=== PATIENT | female | born 1995 | race Asian ===

== ENCOUNTER 2018-01-07 02:44 | Emergency (ER) | payer OTHER ==
[2018-01-07 03:10] LABS: BILIRUBIN,URINE NEGATIVE (NEGATIVE); GLUCOSE, URINE (UA) 500 mg/dL (NEGATIVE); KETONES,URINE (UA) TRACE mg/dL (NEGATIVE); LEUKOCYTE ESTERASE, URINE NEGATIVE (NEGATIVE); NITRITE,URINE NEGATIVE (NEGATIVE); OCCULT BLOOD,URINE TRACE-LYSE (NEGATIVE); PROTEIN,URINE NEGATIVE (NEGATIVE); UROBILINOGEN,URINE 1 (NORMAL) E.U./dL (NORMAL)
[2018-01-07] MEDS ORDERED: DICYCLOMINE 10 MG CAPSULE PO STA (03:10)
[2018-01-07] MEDS ORDERED: ONDANSETRON ODT 4 MG TABLET TL STA (03:10)
[2018-01-07] MEDS ORDERED: ACETAMINOPHEN 500 MG TABLET PO STA (03:10)
[2018-01-07] MEDS ORDERED: MAG HYDROX/AL HYDROX/SIMETH 30 ML UDC PO STA (03:11)
[2018-01-07] MEDS ORDERED: LIDOCAINE VISCOUS 2% 15 ML UDC MM STA (03:11)
[2018-01-07] MEDS ORDERED: FAMOTIDINE 20 MG TABLET PO STA (03:11)
[2018-01-07 03:12] LABS: CLARITY,URINE CLEAR (CLEAR); HCG UR QUAL NEGATIVE
[2018-01-07 03:24] LABS: BASOPHILS # (AUTO) 0.1 10^3/uL (0.0-0.1); BASOPHILS % (AUTO) 0.9 %; EOSINOPHILS # (AUTO) 0.9 10^3/uL (0.0-0.7); EOSINOPHILS % (AUTO) 6.5 %; HGB - HEMOGLOBIN 13.4 g/dL (12.0-16.0); LYMPHOCYTES # (AUTO) 2.9 10^3/uL (1.5-3.5); LYMPHOCYTES % (AUTO) 21.1 %; MEAN CORPUSCULAR HEMOGLOBIN 29.3 pg (27.0-31.0); MEAN CORPUSCULAR HGB CONC 32.6 g/dL (32.0-36.0); MEAN PLATELET VOLUME 8.8 fL (7.9-10.8); MONOCYTES % (AUTO) 7.7 %; NEUTROPHILS # (AUTO) 8.6 10^3/uL (1.5-6.6); NEUTROPHILS % (AUTO) 63.8 %; PLT - PLATELET COUNT 310 10^3/uL (130-450); RED BLOOD COUNT 4.56 10^6/uL (4.20-5.40); RED CELL DISTRIBUTION WIDTH 12.6 % (12.0-15.0); WHITE BLOOD COUNT 13.5 x10^3/uL (4.8-10.8)
[2018-01-07 03:37] LABS: ALBUMIN 3.7 g/dL (3.2-5.5); ALBUMIN/GLOBULIN RATIO 0.9 (1.0-2.2); BILIRUBIN,TOTAL 0.7 mg/dL (0.2-1.0); CALCIUM 8.9 mg/dL (8.5-10.3); CREATININE 0.5 mg/dL (0.4-1.0); TOTAL PROTEIN 7.6 g/dL (6.7-8.2)
--- NOTE | 2018-01-07 03:50 | ED Physician Documentation ---
PD HPI ABD PAIN - Stated complaint Stated Complaint: ABDOMINAL PAIN - Chief complaint Chief Complaint: Abd Pain - History obtained from History obtained from: Patient, Family - History of Present Illness Timing - onset: Today Timing - details: Gradual onset, Still present Quality: Cramping, Aching, Sharp Location: All over / everywhere, RUQ, Epigastric Worsened by: Eating Associated symptoms: Nausea, Diarrhea. No: Fever, Vomiting Similar symptoms before: No diagnosis Recently seen: Not recently seen - Additional information Additional information: Patient is a 22 year old obese female who is presenting to the emergency department for abdominal pain. Patient states that the pain started this evening. patient had chicken nuggets for lunch and then urugu[place] food for dinner. patient states that she is nauseated but did not vomit. Patient has had a few episode like this in the past but has never been diagnosed with anything. patient reports that her pain in mainly on the right side and the center. Review of Systems Constitutional: denies: Fever, Chills Eyes: reports: Reviewed and negative Ears: reports: Reviewed and negative Nose: reports: Reviewed and negative Throat: reports: Reviewed and negative Cardiac: denies: Chest pain / pressure, Palpitations GI: reports: Abdominal Pain, Nausea, Diarrhea. denies: Vomiting, Constipation : denies: Dysuria, Frequency, Hesitancy Skin: denies: Rash, Lesions Neurologic: denies: Generalized weakness, Focal weakness, Numbness Immunocompromised: denies: Immunocompromised PD PAST MEDICAL HISTORY - Past Medical History Past Medical History: No - Past Surgical History Past Surgical History: No - Present Medications Home Medications: Ambulatory Orders Medication Instructions Recorded Confirmed Ondansetron Odt [Zofran] 4 mg TL Q6H PRN #14 tablet 01/07/18 - Allergies Allergies/Adverse Reactions: Allergies Allergy/AdvReac Type Severity Reaction Status Date / Time amoxicillin Allergy Respiratory Verified 01/07/18 02:59 - Social History Does the pt smoke?: No Smoking Status: Never smoker Does the pt drink ETOH?: No Does the pt have substance abuse?: No - Immunizations Immunizations are current?: Yes - POLST Patient has POLST: No PD ED PE NORMAL - Vitals Vital signs reviewed: Yes - General General: Alert and oriented X 3 - HEENT HEENT: Atraumatic - Neck Neck: Supple, no meningeal sign - Cardiac Cardiac: RRR - Respiratory Respiratory: No respiratory distress - Abdomen Abdomen: Soft - Derm Derm: Normal color, Warm and dry - Extremities Extremities: No deformity - Neuro Neuro: Alert and oriented X 3, No motor deficit Eye Opening: Spontaneous PD ED PE EXPANDED - General General: Alert, In Pain - Abdomen Abdomen: Tender to palpation, RUQ, Epigastric, Generalized/diffuse. No: Rebound , Guarding - Derm Derm: Rash (consistent with acanthosis nigrans) Results - Vitals Vitals: Vital Signs - 24 hr 01/07/18 01/07/18 01/07/18 02:50 04:09 05:50 Temperature 36.0 C L Heart Rate 96 64 75 Respiratory 18 16 18 Rate Blood Pressure 149/104 H 117/75 142/104 H O2 Saturation 98 96 99 Oxygen O2 Source Room air - Labs Labs: Laboratory Tests 01/07/18 01/07/18 01/07/18 02:50 03:15 03:15 WBC 13.5 H RBC 4.56 Hgb 13.4 Hct 41.0 MCV 90.0 MCH 29.3 MCHC 32.6 RDW 12.6 Plt Count 310 MPV 8.8 Neut # 8.6 H Lymph # 2.9 [place] # 1.0 Eos # 0.9 H Baso # 0.1 Absolute Nucleated RBC 0.01 Nucleated RBC % 0.0 Sodium 134 L Potassium 3.9 Chloride 103 Carbon Dioxide 24 Anion Gap 7.0 BUN 11 Creatinine 0.5 Estimated GFR (MDRD) 156 Glucose 289 H Calcium 8.9 Total Bilirubin 0.7 AST 23 ALT 37 Alkaline Phosphatase 114 Total Protein 7.6 Albumin 3.7 Globulin 3.9 Albumin/Globulin Ratio 0.9 L Lipase 35 Urine Color YELLOW Urine Clarity CLEAR Urine pH 6.0 Ur Specific [place] >=1.030 H Urine Protein NEGATIVE Urine Glucose (UA) 500 H Urine Ketones TRACE Urine Occult Blood TRACE-LYSE Urine Nitrite NEGATIVE Urine Bilirubin NEGATIVE Urine Urobilinogen 1 (NORMAL) Ur Leukocyte Esterase NEGATIVE Ur Microscopic Review NOT INDICATED Urine Culture Comments NOT INDICATED Urine HCG, Qual NEGATIVE - Rads (name of study) abd ultrasound Radiology: Final report received (fatty liver, no signs of cholecystitis) PD MEDICAL DECISION MAKING - ED course Complexity details: reviewed old records, reviewed results, re-evaluated patient , considered differential, d/w patient, d/w family ED course: patient was seen and examined at bedside. labs were drawn and urine was collected. Patient was treated with tylenol, bentyl, zofran, pepcid, maalox and viscous lidocaine. Ultrasound was ordered. When patient returned from imaging the results were reviewed. there were no signs of acute cholecystitis. A lengthy discussion was had with the patient and her about the possible causes and it was likely dietary in nature. Patient was also made aware that she was diabetic and prompt follow up was in order. Patient was educated on diet and exercise. Patient was stable for discharge with outpatient follow up. Departure - Departure Disposition: Home, Self Care Clinical Impression: Abdominal pain Condition: Good Instructions: ED Abdominal Pain Unkn Cause Follow-Up: primary,care provider [Other] Prescriptions: Ondansetron Odt [Zofran] 4 mg TL Q6H PRN #14 tablet PRN Reason: Nausea / Vomiting Comments: Your diagnostics today were within normal limits aside from your elevated blood glucose. it looks like you are developing diabetes. The first step is diet and exercise. it is important to increase your fruits and vegetables as well as your lean proteins. You should cut out all fast food and virtually all soft drinks. It is imperative that you follow up with a primary care physician. Discharge Date/Time: 01/07/18 05:53
--- NOTE | 2018-01-07 05:33 | Ultrasound Preliminary Report ---
Exam: US ABDOMEN LIMITED IMPRESSION: 1. Gallbladder and common duct appear normal. No cholelithiasis or cholecystitis identified. 2. Enlarged fatty liver. [facility] SITE ID: [id number]
--- NOTE | 2018-01-07 05:34 | Ultrasound Report ---
EXAM: ABDOMEN ULTRASOUND LIMITED, RUQ EXAM DATE: 01/07/2018 05:20 AM. CLINICAL HISTORY: Right sided abdominal pain, evaluate gallbladder. COMPARISON: None. TECHNIQUE: Real-time scanning was performed with static images obtained. FINDINGS: Liver: Echogenic, consistent with fatty infiltration. 20.0 cm. Main portal vein flow: Hepatopetal. Gallbladder: Normal. No stones, wall thickening, or sonographic Hdez's sign. Biliary System: CBD measures 4.4 mm. No intrahepatic or extrahepatic ductal dilatation. Other: Right kidney measures 12.2 cm and appears normal. Inferior vena cava appears patent where seen . IMPRESSION: 1. Gallbladder and common duct appear normal. No cholelithiasis or cholecystitis identified. 2. Enlarged fatty liver. [facility] Referring Provider Line: [phone] SITE ID: [id number]
[2018-01-07 05:55] VITALS: BP 142/104
== END 2018-01-07 05:53 | disposition home or self-care (01) ==
LOC: ED 02:44
DX: R10.84 Generalized abdominal pain (principal); R11.0 Nausea; R19.7 Diarrhea, unspecified; E11.9 Type 2 diabetes mellitus without complications; R21 Rash and other nonspecific skin eruption
CPT/HCPCS: 36415; 76705; 80053; 81003; 81025; 83690; 85025; 99283; 99284; A9270; Q0162; 81001; 87086

== ENCOUNTER 2018-04-19 16:17 | Outpatient (CLI) | payer OTHER | END 2018-04-19 16:18 | disposition critical access hospital (66) | LOC: EMS 16:17 | PROVIDERS: ATTEND Surgery | DX: T50.992A Poisoning by other drugs, medicaments and biological substances, intentional self-harm, initial encounter (principal); R26.81 Unsteadiness on feet | CPT/HCPCS: A0425; A0429 ==

== ENCOUNTER 2018-04-19 16:29 | Emergency (ER) | payer OTHER ==
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
[2018-04-19 16:55] LABS: BASOPHILS # (AUTO) 0.1 10^3/uL (0.0-0.1); BASOPHILS % (AUTO) 1.2 %; EOSINOPHILS # (AUTO) 0.8 10^3/uL (0.0-0.7); EOSINOPHILS % (AUTO) 6.6 %; HGB - HEMOGLOBIN 14.8 g/dL (12.0-16.0); LYMPHOCYTES # (AUTO) 3.3 10^3/uL (1.5-3.5); LYMPHOCYTES % (AUTO) 28.8 %; MEAN CORPUSCULAR HGB CONC 33.4 g/dL (32.0-36.0); MEAN CORPUSCULAR VOLUME 89.7 fL (81.0-99.0); MEAN PLATELET VOLUME 8.7 fL (7.9-10.8); MONOCYTES # (AUTO) 0.8 10^3/uL (0.0-1.0); NEUTROPHILS # (AUTO) 6.4 10^3/uL (1.5-6.6); NEUTROPHILS % (AUTO) 56.4 %; PLT - PLATELET COUNT 354 10^3/uL (130-450); RED BLOOD COUNT 4.95 10^6/uL (4.20-5.40); RED CELL DISTRIBUTION WIDTH 12.6 % (12.0-15.0); WHITE BLOOD COUNT 11.4 x10^3/uL (4.8-10.8)
[2018-04-19 17:10] LABS: MUDS CUTOFF CONCENTRATIONS CUTOFF CONC BELOW:
[2018-04-19 17:11] LABS: ALBUMIN 4.2 g/dL (3.2-5.5); ALBUMIN/GLOBULIN RATIO 1.1 (1.0-2.2); BILIRUBIN,TOTAL 0.5 mg/dL (0.2-1.0); CALCIUM 9.3 mg/dL (8.5-10.3); CREATININE 0.6 mg/dL (0.4-1.0); SALICYLATE 7.2 mg/dL; TOTAL PROTEIN 8.2 g/dL (6.7-8.2)
[2018-04-19 17:11] LABS: BILIRUBIN,URINE NEGATIVE (NEGATIVE); GLUCOSE, URINE (UA) NEGATIVE (NEGATIVE); KETONES,URINE (UA) NEGATIVE (NEGATIVE); LEUKOCYTE ESTERASE, URINE NEGATIVE (NEGATIVE); NITRITE,URINE NEGATIVE (NEGATIVE); OCCULT BLOOD,URINE NEGATIVE (NEGATIVE); PROTEIN,URINE NEGATIVE (NEGATIVE); UROBILINOGEN,URINE 0.2 (NORMAL) E.U./dL (NORMAL)
[2018-04-19] MEDS: SODIUM CHLORIDE 0.9% 1,000 ML IV ONE ×2 (17:12→23:12)
[2018-04-19 17:15] LABS: CLARITY,URINE CLEAR (CLEAR)
[2018-04-19 17:16] LABS: HCG UR QUAL NEGATIVE
[2018-04-19 17:33] LABS: AMPHETAMINE SCREEN,URINE NEGATIVE (NEGATIVE); BENZODIAZEPINES SCREEN, URINE NEGATIVE (NEGATIVE); COCAINE SCREEN URINE NEGATIVE (NEGATIVE); METHADONE SCREEN, URINE NEGATIVE (NEGATIVE); METHAMPHETAMINES SCREEN, URINE NEGATIVE (NEGATIVE); OPIATE SCREEN, URINE NEGATIVE (NEGATIVE); OXYCODONE SCREEN, URINE NEGATIVE (NEGATIVE); PROPOXYPHENE SCREEN, URINE NEGATIVE (NEGATIVE); TRICYCLIC ANTIDEPRESSANT,URINE NEGATIVE (NEGATIVE)
[2018-04-19] MEDS ORDERED: ONDANSETRON 4 MG/2 ML VIAL IVP STA (18:29)
[2018-04-19 19:47] LABS: SALICYLATE 8.6 mg/dL
[2018-04-19] MEDS: ONDANSETRON 4 MG/2 ML VIAL IVP STA (23:12)
--- NOTE | 2018-04-20 01:39 | ED Physician Documentation ---
ED Addendum - Addendum Addendum: 04/20/18 01:36 The case is turned over to me by the off going emergency physician to follow-up on the recommendations of the [facility]. The patient was medically cleared by the prior emergency physician. The patient was seen and evaluated by the [facility] and after a comprehensive discussion the [facility] has determined that the patient appears appropriate for discharge and ongoing outpatient management. The patient contracts for safety with the [facility]. They have arranged for outpatient management. The patient will be discharged. I discussed warning signs and recommended returning to the emergency department immediately for any worsening or any concerns.
[2018-04-20 01:49] VITALS: BP 139/83
== END 2018-04-20 01:53 | disposition home or self-care (01) ==
LOC: EDUNIT# → ED 16:29
DX: T14.91XA Suicide attempt, initial encounter (principal); T44.992A Poisoning by other drug primarily affecting the autonomic nervous system, intentional self-harm, initial encounter; T65.892A Toxic effect of other specified substances, intentional self-harm, initial encounter; F10.129 Alcohol abuse with intoxication, unspecified
CPT/HCPCS: 36415; 80053; 80306; 80307; 80320; 80329; 81001; 81003; 81025; 83690; 84443; 85025; 87086; 93005; 96361; 96374; 96376; 99284; 99285